=== PATIENT | female | born 1940 | race Caucasian/White ===

== ENCOUNTER 2024-07-11 08:01 | Emergency (ER) | payer MEDICARE, OTHER ==
[~2024-07-11] VITALS: Ht 157.5 cm; Wt 61.0 kg
[2024-07-11 08:48] VITALS: BP 155/73; TEMP 98.8
[2024-07-11 08:52] VITALS: PULSE 67; RESP 20; O2SAT 93
--- NOTE | 2024-07-11 09:12 | ED.PDOC ---
Back pain HPI HPI Comments 83 year old presents for chronic musculoskeletal pain C/o cervical pain, right lower back pain and left anterior shoulder pain. Also reports she is not voiding Takes xanax 0.5 QID, levothyroxine 25 mcg, atenolol 50 mg qd, dicyclomne 20 mg TID, gabapentin 100 mg TID, atorvastatin 40 mg qd,, amlodipine - benzapril 2.5- 10 qd, lidocaine 5% patch Underwent epidural injection from pain management Denies trauma or injury PCP: Micaela Elliott Chief Complaint: Body Pain Time Seen by MD: 08:37 Reviewed Notes: Nurses Notes, Medications, Allergies Allergies: Uncoded Allergies: SULFUR (Allergy, Unknown, 07/11/24) Information Source: Patient Mode of Arrival: Wheelchair Family History Family History: Reviewed,noncontributory to illness Social History Smoker: Non-Smoker Alcohol: Denies ETOH Use Drugs: Denies Drug Use All Other Systems: Reviewed and Negative (Per HPI) Physical Exam General Appearance: No Apparent Distress, Normal HEENT: Normal ENT Inspection, Pharynx Normal, TMs Normal Neck: Full Range of Motion, Non-Tender, Normal, Normal Inspection Respiratory: Chest Non-Tender, Lungs Clear, No Accessory Muscle Use, No Respiratory Distress, Normal Breath Sounds Cardiovascular: No Murmur, No Gallop, Regular Rate/Rhythm Breast Exam: Deferred Gastrointestinal: No Organomegaly, Non Tender, No Pulsatile Mass, Normal Bowel Sounds, Soft Genitalia: Deferred Pelvic: Deferred Rectal: Deferred Extremities: No calf tenderness, Normal capillary refill, Normal inspection, Normal range of motion, Non-tender, No pedal edema Musculoskeletal : Apperance: Normal Neurologic: Alert, No Motor Deficits, Normal Affect, Normal Mood, No Sensory Deficits Cerebellar Function: Normal Reflexes: Normal Skin: Dry, Normal Color, Warm Lymphatic: No Adenopathy Was a procedure done? Was a procedure done?: No Back Pain Differential Dx Differential Diagnosis: Fracture, Musculoskeletal Pain, Other X-Ray, Labs, Meds, VS Vital Signs Date Time Temp Pulse Resp B/P (MAP) Pulse Ox O2 Delivery O2 Flow Rate FiO2 07/11/24 08:52 67 20 93 Room Air 0 07/11/24 08:48 98.8 67 20 155/73 (100) 93 98.8 07/11/24 08:11 98.5 67 20 155/73 (100) 93 Lab Test 07/11/24 11:20 07/11/24 10:09 07/11/24 09:50 Range/Units Troponin I High Sensitivity < 3 L < 3 L </=34 ng/L White Blood Count 5.4 4.4-10.8 10^3/uL Red Blood Count 4.59 4.0-5.20 10^6/uL Hemoglobin 14.4 12.2-16.2 g/dL Hematocrit 42.4 36.0-46.0 % Mean Corpuscular Volume 92.3 80.0-100.0 fL Mean Corpuscular Hemoglobin 31.3 28.0-32.0 pg Mean Corpuscular Hemoglobin Concent 33.9 32.0-36.0 g/dL Red Cell Distribution Width 14.5 H 11.8-14.3 % Platelet Count 197 140-450 10^3/uL Mean Platelet Volume 6.5 L 6.9-10.8 fL Neutrophils (%) (Auto) 58.3 37.0-80.0 % Lymphocytes (%) (Auto) 28.0 10.0-50.0 % Monocytes (%) (Auto) 11.0 0.0-12.0 % Eosinophils (%) (Auto) 2.3 0.0-7.0 % Basophils (%) (Auto) 0.4 0.0-2.0 % Neutrophils # (Auto) 3.2 1.6-8.6 10 ^3/uL Lymphocytes # (Auto) 1.5 0.4-5.4 10 ^3/uL Monocytes # (Auto) 0.6 0-1.3 10 ^3/uL Eosinophils # (Auto) 0.1 0-0.8 10 ^3/uL Basophils # (Auto) 0 0-0.2 10 ^3/uL Nucleated Red Blood Cells 0.1 % Sodium Level 141 136-145 mmol/L Potassium Level 4.0 3.5-5.1 mmol/L Chloride Level 105 98-107 mmol/L Carbon Dioxide Level 29 20-31 mmol/L Anion Gap 7 5-15 Blood Urea Nitrogen 17 9-23 mg/dL Creatinine 0.88 0.550-1.02 mg/dL Glomerular Filtration Rate Calc 66 >90 mL/min BUN/Creatinine Ratio 19.3 10.0-20.0 Serum Glucose 112 H 74-106 mg/dL Lactic Acid Level 1.2 0.4-2.0 mmol/L Calcium Level 10.4 8.7-10.4 mg/dL Total Bilirubin 0.4 0.2-1.0 mg/dL Aspartate Amino Transferase (AST) 21 13-40 U/L Alanine Aminotransferase (ALT) 17 7-40 U/L Alkaline Phosphatase 88 46-116 U/L Total Protein 7.0 5.7-8.2 g/dL Albumin 4.7 3.2-4.8 g/dL Urine Color Colorless Yellow Urine Clarity Clear Clear Urine pH 6.5 5.0-9.0 Urine Specific [place] 1.006 1.001-1.035 Urine Protein Negative Negative Urine Ketones Negative Negative Urine Blood Negative Negative /uL Urine Nitrite Negative Negative Urine Bilirubin Negative Negative Urine Urobilinogen Normal Negative mg/dL Urine Leukocyte Esterase Negative Negative /uL Urine RBC 1 0 - 4 /hpf Urine Microscopic WBC < 1 0-5 /HPF Urine Squamous Epithelial Cells None seen <5 /hpf Urine Bacteria None seen None Seen /hpf Urine Glucose Normal Normal mg/dL PATIENT: KAMILLA MENDOZA ANNACCT: [id number]: [id number] : 1940 LOC: ER ROOM / BED: / AGE / SEX: 83 / F ADM STATUS: REG ER SERVICE 8 ORDERING PHYSICIAN: COURTNEY SANCHEZ NP PROCEDURE(s): CS2 - CERVICAL WITHOUT CONTRAST REASON: cervical pain ORDER NUMBER(s): [id number], ACCESSION NUMBER(s): [id number] EXAM: CT CERVICAL WITHOUT CONTRAST INDICATION: cervical pain EXAM DATE: 07/11/2024 09:41 AM COMPARISON: None TECHNIQUE: Multiple axial CT images of the cervical spine were obtained using bone algorithm. Sagittal and coronal reformatting was done. Bone and soft tissue windows were reviewed. Radiation Dose Information: CT Dose: CTDI volume is 18.2 mGy. Dose-length product is 485.17 mGy*cm FINDINGS: The cervical alignment is intact. The curvature is maintained. No acute cervical spine fracture is identified. The vertebral body heights are intact. No suspicio us osseous lesions are identified. Multilevel intervertebral disc space narrowing in the cervical spine. Mild canal stenosis at C5-C6. Multilevel neural foraminal stenosis due to facet and uncovertebral hypertrophy. There is no prevertebral soft tissue swelling. The lung apices are clear. IMPRESSION: 1. No evidence of acute cervical spine fracture or traumatic malalignment. 2. Degenerative changes of the cervical spine. All CT scans at this medical facility are performed using dose modulation tech niques as appropriate to a performed exam including the following: Automated exposure control was utilized; adjustment of the MA and/or KV according to patient size; and use of iterative reconstruction technique. ATED BY: LUPE ESPINAL MD DICTATED DATE/TIME: 07/11/24 100 SIGNED BY: LUPE ESPINAL MD SIGNED DATE/TIME: 07/11/24 100 CC: PATIENT: KAMILLA MENDOZA ACCT: [id number] UNIT: [id number] : 1940 LOC: ER ROOM / BED: / AGE / SEX: 83 / F ADM STATUS: REG ER SERVICE 09 ORDERING PHYSICIAN: COURTNEY SANCHEZ ASSISTANT CLINICAL DIRECTOR PROCEDURE(s): CTCAP - CHST AB PEL WO CON-NO IV/ORAL REASON: chronic pains ORDER NUMBER(s): [id number], ACCESSION NUMBER(s): [id number] CT CHEST, ABDOMEN AND PELVIS WITHOUT CONTRAST CLINICAL HISTORY: chronic pains TECHNIQUE: Multiple contiguous axial images of the chest, abdomen and pelvis without intravenous contrast. The images were reformatted degenerate coronal and sagittal reconstructions. All CT scans at this medical facility are performed using dose modulation techniques as appropriate to a performed exam including the following:Automated exposure control was utilized; adjustment of the MA and/or KV according to patient size; and use of iterative reconstruction technique. Radiation Dose Information: CT Dose: CTDI volume is 12.8 mGy. Dose-length product is 826 mGy*cm FINDINGS: Evaluation of the chest, abdomen and pelvis is limited without intravenous contrast. There is mild scarring versus atelectasis in the posterior lung bases. The lungs are otherwise clear without evidence of consolidation. There is no pleural effusion or pneumothorax. There is no suspicious appearing pulmonary nodule or mass. There is no evidence of a mediastinal mass or lymphadenopathy. There is no axillary lymphadenopathy. The thyroid gland appears heterogeneous likely related to goiter. The heart size within normal limits. There is no pericardial effusion. There are coronary artery calcifications. The liver, gallbladder, pancreas, kidneys, adrenal glands, and spleen appear within normal limits. There is no gross evidence of abdominal lymphadenopathy. There is no free fluid or free air. The small and large bowel loops demonstrate normal caliber. There is moderate amount of stool in the colon. There is a normal-appearing appendix in the right lower quadrant abdomen. The abdominal aorta and IVC appear within normal limits. The bladder appears unremarkable. The uterus is surgically absent.. There is no evidence of a pelvic mass or lymphadenopathy. There is no free fluid collection. There are chronic appearing wedge compression deformities of the T12 and L1 vertebral bodies. There are bilateral pedicle screws with fusion rods from the T 12 to the L2 vertebral body level. There is no acute osseous abnormality. IMPRESSION: 1. There is no acute process in the chest, abdomen and pelvis. 2. Chronic appearing wedge compression deformities of the T12 and L1 vertebral bodies. There is posterior fusion hardware at the thoracolumbar junction as described above. 3. Moderate amount of stool in the colon. 4. Heterogeneous thyroid gland likely related to goiter. HS:Y ATED BY: ZAN BELLA MD DICTATED DATE/TIME: 07/11/24 100 SIGNED BY: ZAN BELLA MD SIGNED DATE/TIME: 07/11/24 100 CC: X-Ray, Labs, Meds, VS Comment Imaging ordered, interpreted by radiologist, reviewed by me and results show I considered Cauda Equina, Spinal Cord Compression Syndrome, Vertebral Malignancy/Mets, Acute Spinal Fracture, Vertebral Osteomyelitis, Epidural Abscess, Infected or Obstructing Kidney Stone, however,this is less likely as the patient does not present with lower back pain red flag symptoms such as bowel or bladder dysfunction, saddle anesthesia or paresthesia, and without any history of malignancy or recent back trauma or spinal interventions. Therefore, further imaging studies such as MRI were not indicated. Presentation most consistent with non-emergent musculoskeletal etiology vs non-emergent disc herniation. ED Workup: reassuring Disposition: Discharge. Strict return precautions discussed with patient with full understanding. Advised patient to follow up promptly with primary care provider Supportive care advised (rest, ice, heat, NSAIDs, stretching exercises) Massage muscles with cold pack or ice for 20 minutes 4 times per day. Usually most useful if there is swelling during the first 48 hours Heating pad on the most painful area for 20 minutes to relieve muscle spasm Sleep and the most comfortable sleeping position (usually on the side with knees bent) Light stretching, no strenuous activity, avoid frequent bending, avoid carrying heavy objects Discussed possible benefits of yoga and acupuncture Return precautions discussed including Inability to walk/bear weight Paresthesia/weakness/leg pain Fecal/urinary incontinence Any worsening symptoms Time of 1ST Reevaluation: 13:00 Reevaluation 1ST: Improved Patient Education/Counseling: Diagnosis, Treatment Family Education/Counseling: Diagnosis, Treatment Departure 1 Departure Time of Disposition: 13:04 Impression: Primary Impression: Chronic neck and back pain Additional Impression: Chronic shoulder pain Qualified Codes: M25.512 - Pain in left shoulder; G89.29 - Other chronic pain Disposition: 01 HOME / SELF CARE / HOMELESS Condition: Fair Critical Care Note Critical Care Time?: No Stability Stability form required: No Heart Score Heart Score: Heart Score Response (Comments) Value History N/A 0 EKG N/A 0 Age N/A 0 Risk Factors N/A 0 Troponin N/A 0 Total 0 COURTNEY SANCHEZ NP Jul 11, 2024 09:12
--- NOTE | 2024-07-11 10:06 | DVH ---
EXAM: CT CERVICAL WITHOUT CONTRAST INDICATION: cervical pain EXAM DATE: 07/11/2024 09:41 AM COMPARISON: None TECHNIQUE: Multiple axial CT images of the cervical spine were obtained using bone algorithm. Sagitta l and coronal reformatting was done. Bone and soft tissue windows were reviewed. Radiation Dose Information: CT Dose: CTDI volume is 18.2 mGy. Dose-length product is 485.17 mGy*cm FINDINGS: The cervical alignment is intact. The curvature is maintained. No acute cervical spine fracture is id entified. The vertebral body heights are intact. No suspicious osseous lesions are identified. Multilevel intervertebral disc space narrowing in the cervical spine. Mild canal stenosis at C5-C6. Multilevel neural foraminal stenosis due to facet and uncovertebral hypertrophy. There is no prevertebral soft tissue swelling. The lung apices are clear. IMPRESSION: 1. No evidence of acute cervical spine fracture or traumatic malalignment. 2. Degenerative changes of the cervical spine. All CT scans at this medical facility are performed using dose modulation techniques as appropriate t o a performed exam including the following: Automated exposure control was utilized; adjustment of th e MA and/or KV according to patient size; and use of iterative reconstruction technique.
--- NOTE | 2024-07-11 10:07 | DVH ---
CT CHEST, ABDOMEN AND PELVIS WITHOUT CONTRAST CLINICAL HISTORY: chronic pains TECHNIQUE: Multiple contiguous axial images of the chest, abdomen and pelvis without intravenous cont rast. The images were reformatted degenerate coronal and sagittal reconstructions. All CT scans at this medical facility are performed using dose modulation techniques as appropriate t o a performed exam including the following:Automated exposure control was utilized; adjustment of the MA and/or KV according to patient size; and use of iterative reconstruction technique. Radiation Dose Information: CT Dose: CTDI volume is 12.8 mGy. Dose-length product is 826 mGy*cm FINDINGS: Evaluation of the chest, abdomen and pelvis is limited without intravenous contrast. There is mild scarring versus atelectasis in the posterior lung bases. The lungs are otherwise clear without evidence of consolidation. There is no pleural effusion or pneumothorax. There is no suspici ous appearing pulmonary nodule or mass. There is no evidence of a mediastinal mass or lymphadenopathy. There is no axillary lymphadenopathy . The thyroid gland appears heterogeneous likely related to goiter. The heart size within normal limits. There is no pericardial effusion. There are coronary artery joe cifications. The liver, gallbladder, pancreas, kidneys, adrenal glands, and spleen appear within normal limits. There is no gross evidence of abdominal lymphadenopathy. There is no free fluid or free air. The small and large bowel loops demonstrate normal caliber. There is moderate amount of stool in the colon. There is a normal-appearing appendix in the right lower quadrant abdomen. The abdominal aorta and IVC appear within normal limits. The bladder appears unremarkable. The uterus is surgically absent.. There is no evidence of a pelvi c mass or lymphadenopathy. There is no free fluid collection. There are chronic appearing wedge compression deformities of the T12 and L1 vertebral bodies. There a re bilateral pedicle screws with fusion rods from the T12 to the L2 vertebral body level. There is no acute osseous abnormality. IMPRESSION: 1. There is no acute process in the chest, abdomen and pelvis. 2. Chronic appearing wedge compression deformities of the T12 and L1 vertebral bodies. There is poste rior fusion hardware at the thoracolumbar junction as described above. 3. Moderate amount of stool in the colon. 4. Heterogeneous thyroid gland likely related to goiter. HS:Y
[2024-07-11 10:54] LABS: Basophils # (auto) 0 10 ^3/uL (0-0.2); Basophils % (auto) 0.4 % (0.0-2.0); Eosinophils # (auto) 0.1 10 ^3/uL (0-0.8); Eosinophils % (auto) 2.3 % (0.0-7.0); Hematocrit 42.4 % (36.0-46.0); Hemoglobin 14.4 g/dL (12.2-16.2); Lymphocytes # (auto) 1.5 10 ^3/uL (0.4-5.4); Mean Corpuscular Hemoglobin 31.3 pg (28.0-32.0); Mean Corpuscular Hgb Conc. 33.9 g/dL (32.0-36.0); Mean Corpuscular Volume 92.3 fL (80.0-100.0); Monocytes # (auto) 0.6 10 ^3/uL (0-1.3); Neutrophils # (auto) 3.2 10 ^3/uL (1.6-8.6); Neutrophils % (auto) 58.3 % (37.0-80.0); Nucleated Red Blood Cells % 0.1 %; Platelet Count (auto) 197 10^3/uL (140-450); Red Blood Cells 4.59 10^6/uL (4.0-5.20); Red Cell Distribution Width 14.5 % (11.8-14.3); White Blood Cell 5.4 10^3/uL (4.4-10.8)
[2024-07-11 10:58] LABS: Alanine Aminotransferase 17 U/L (7-40); Albumin 4.7 g/dL (3.2-4.8); Alkaline Phosphatase 88 U/L (46-116); Anion Gap 7 (5-15); Aspartate Aminotransferase 21 U/L (13-40); BUN/Creatinine Ratio 19.3 (10.0-20.0); Bilirubin, Total 0.4 mg/dL (0.2-1.0); Blood Urea Nitrogen 17 mg/dL (9-23); Calcium 10.4 mg/dL (8.7-10.4); Carbon Dioxide 29 mmol/L (20-31); Chloride 105 mmol/L (98-107); Sodium 141 mmol/L (136-145)
[2024-07-11 11:03] LABS: Glucose 112 mg/dL (74-106)
[2024-07-11 12:20] LABS: Urine Bacteria None Seen /hpf (None Seen)
[2024-07-11 12:34] LABS: Urine Blood Negative /uL (Negative); Urine Clarity Clear (Clear); Urine Color Colorless (Yellow); Urine Protein, UAD Negative (Negative); Urine Specific Gravity 1.006 (1.001-1.035); Urine Squamous Epithelial Cell None Seen /hpf (<5); Urine Urobilinogen Normal (Negative); Urine WBC < 1 /HPF (0-5); Urine pH 6.5 (5.0-9.0)
== END 2024-07-11 13:12 | disposition home or self-care (01) ==
LOC: ER 08:01
DX: G89.29 Other chronic pain (principal); M54.2 Cervicalgia; M54.50 Low back pain, unspecified; M25.512 Pain in left shoulder
CPT/HCPCS: 36415; 71250; 72125; 74176; 80053; 81001; 83605; 84484; 85025

== ENCOUNTER 2024-10-30 11:52 | Emergency (ER) | payer MEDICARE ==
[~2024-10-30] VITALS: Ht 157.5 cm; Wt 70.5 kg
--- NOTE | 2024-10-30 14:29 | DVH ---
CLINICAL INDICATION: Trauma; r/o fracture TECHNIQUE: 3 radiographic views of the left shoulder were obtained. Comparison: None FINDINGS/IMPRESSION: There is no evidence of acute fracture or dislocation. The visualized joint space is well maintained. The alignment is anatomical. There is no radiopaque foreign body.
--- NOTE | 2024-10-30 14:31 | DVH ---
INDICATION: Pain; r/o fracture COMPARISON: None TECHNIQUE: 2 views of the cervical spine were obtained. FINDINGS: Straightening of the cervical spine. Mild retrolisthesis of C5 on C6. The predental space is normal. Moderate multilevel degenerative disc disease of the cervical spine. No acute fracture, vertebral compression deformity or aggressive osseous lesions. The imaged lung apices are unremarkable. IMPRESSION: Moderate multilevel degenerative disc disease of the cervical spine.
--- NOTE | 2024-10-30 14:52 | ED.PDOC ---
Musculoskeletal HPI Comments 84-year-old presents for atraumatic left shoulder pain and back pain. Onset this chronic. Follows up with the PCP.. Sees Dr. ALONZO and takes herbert. Seen for same issue in the past Chief Complaint: Fall Injury Time Seen by MD: 13:30 Reviewed Notes: Nurses Notes, Medications, Allergies Allergies: Coded Allergies: Azithromycin (Verified Allergy, Unknown, 10/30/24) Uncoded Allergies: SULFUR (Allergy, Unknown, 07/11/24) Information Source: Patient Mode of Arrival: Ambulatory Past Medical History PAST MEDICAL HISTORY: Denies Surgical History: Denies all surgeries COMMERCIAL ACCOUNT MANAGER History: No Pertinent COMMERCIAL ACCOUNT MANAGER History Family History Family History: Reviewed,noncontributory to illness Social History Smoker: Non-Smoker Alcohol: Denies ETOH Use Drugs: Denies Drug Use All Other Systems: Reviewed and Negative (Per HPI) Physical Exam General Appearance: No Apparent Distress, Normal HEENT: Normal ENT Inspection, Pharynx Normal, TMs Normal Neck: Full Range of Motion, Non-Tender, Normal, Normal Inspection Respiratory: Chest Non-Tender, Lungs Clear, No Accessory Muscle Use, No Respiratory Distress, Normal Breath Sounds Cardiovascular: No Murmur, No Gallop, Regular Rate/Rhythm Breast Exam: Deferred Gastrointestinal: No Organomegaly, Non Tender, No Pulsatile Mass, Normal Bowel Sounds, Soft Genitalia: Deferred Pelvic: Deferred Rectal: Deferred Extremities: No calf tenderness, Normal capillary refill, Normal inspection, Normal range of motion, Non-tender, No pedal edema Musculoskeletal : Apperance: Normal Neurologic: Alert, it operations analyst II-XII nml as Tested, No Motor Deficits, Normal Affect, Normal Mood, No Sensory Deficits Cerebellar Function: Normal Reflexes: Normal Skin: Dry, Normal Color, Warm Lymphatic: No Adenopathy Was a procedure done? Was a procedure done?: No Differential Diagnosis EXT Differential Diagnosis: Sprain, Arthritis, Other X-Ray, Labs, Meds, VS Vital Signs Date Time Temp Pulse Resp B/P (MAP) Pulse Ox O2 Delivery O2 Flow Rate FiO2 10/30/24 14:58 72 16 98 Room Air 10/30/24 14:58 98.6 78 16 147/72 (97) 98 98.6 10/30/24 12:20 97.3 70 16 136/70 (92) 98 97.3 X-Ray, Labs, Meds, VS Comment I considered cauda equina, spinal cord compression, vertebral malignancy/mets, acute spinal fracture, vertebral osteomyelitis, epidural abscess, infected or obstructed kidney stone, however this is less likely as the patient does not present with lower back pain red flags symptoms such as bowel or bladder dysfunction, saddle anesthesia, paresthesia, and without any history of malignancy or recent back trauma or spinal interventions. Therefore further imaging studies such as a lumbar MRI were not indicated on today's visit. ED workup: Defer imaging and lab work for outpatient follow up at this time Disposition: Discharge. Strict return precautions discussed with the patient with full understanding. Supportive care advised (rest, ice, heat, NSAIDs, stretching exercises) Massage muscles with cold pack or ice for 20 minutes 4 times per day. Usually most useful if there is swelling during the first 48 hours Heating pad on the most painful area for 20 minutes to relieve muscle spasm Sleep and the most comfortable sleeping position (usually on the side with knees bent) Light stretching, no strenuous activity, avoid frequent bending, avoid carrying heavy objects Discussed possible benefits of yoga and acupuncture External notes reviewed. Test results and diagnostic imaging interpreted. All diagnostic findings, discharge care, education and instructions provided Follow-up with PCP in 2 to 3 days Patient verbalized understanding and agreed to treatment plan Vital signs stable, afebrile, no acute distress noted Patient ambulatory with strong steady gait Advised to return precautions for any new or worsening symptoms, return to ER immediately for re-evaluation Patient is aware that the purpose of this visit was for an acute medical emergency requiring emergent stabilization. Chronic conditions, including malignancies have not been ruled out. Patient is instructed to follow up with PCP as directed and discharge instructions for continued care and workup. If unable to arrange follow-up, patient is to return to the emergency department for reassessment. Patient (parent or legal guardian if applicable) was given verbal and written discharge instructions and acknowledges understanding. Time of 1ST Reevaluation: 14:38 Reevaluation 1ST: Improved Patient Education/Counseling: Diagnosis, Treatment Family Education/Counseling: Diagnosis, Treatment Departure 1 Departure Time of Disposition: 14:51 Impression: Primary Impression: Chronic neck and back pain Disposition: 01 HOME / SELF CARE / HOMELESS Condition: Stable Discharged With: Relative Critical Care Note Critical Care Time?: No Stability Stability form required: No Heart Score Heart Score: Heart Score Response (Comments) Value History N/A 0 EKG N/A 0 Age N/A 0 Risk Factors N/A 0 Troponin N/A 0 Total 0 COURTNEY SANCHEZ NP October 30, 2024 14:52
[2024-10-30 14:58] VITALS: BP 147/72; PULSE 72; RESP 16; TEMP 98.6; O2SAT 98
== END 2024-10-30 15:00 | disposition home or self-care (01) ==
LOC: ER 11:55
DX: M54.2 Cervicalgia (principal); M25.512 Pain in left shoulder; G89.29 Other chronic pain; Z88.1 Allergy status to other antibiotic agents
CPT/HCPCS: 72040; 73030